=== PATIENT | female | born 2000 | race Caucasian/White ===

== ENCOUNTER 2023-08-19 07:34 | Outpatient (CLI) | payer OTHER, SELFPAY | END 2023-08-19 07:35 | disposition home or self-care (01) | PROVIDERS: Visit Provider Family Medicine | DX: S19.9XXA Unspecified injury of neck, initial encounter (principal); V49.40XA Driver injured in collision with unspecified motor vehicles in traffic accident, initial encounter; Y92.413 State road as the place of occurrence of the external cause | CPT/HCPCS: A0425; A0427 ==

== ENCOUNTER 2023-08-19 08:08 | Emergency (ER) | payer OTHER, SELFPAY ==
--- NOTE | 2023-08-19 | CT_ITS ---
Patient: FAITH GALAVIZ Facility:?[facility] Patient ID:?[id number] Site Patient ID:?[id number]. Site :?2002 Study:?CT-Head code trauma - w/o-08/19/2023 8:29:32 AM Ordering Physician:?Manuel Baum Final Report: INDICATION: Injury COMPARISON: None TECHNIQUE: CT examination of the head was performed as axial sections without intravenous contrast. Images were obtained from the vertex of the skull through the skull base. Please note that all CT scans at this facility use dose modulation, iterative reconstruction, and/or weight-based dosing when appropriate to reduce radiation dose to as low as reasonably achievable. FINDINGS: The brain shows no sign of mass lesion, mass effect, hemorrhage, or edema. The ventricles and sulci are normal in appearance for the patient`s age. The visualized portions of the orbits are normal in appearance. The osseous structures are normal in their appearance with no sign of abnormality in the skull base or calvarium. IMPRESSION: No acute intracranial posttraumatic findings. Please note that all CT scans at this facility use dose modulation, iterative reconstruction, and/or weight-based dosing when appropriate to reduce radiation dose to as low as reasonably achievable. Dictated by Robbie Walker MD @ 08/19/2023 8:40:43 AM Signed by:?Robbie Walker MD @08/19/2023 8:40:43 AM (Electronic Signature)
--- NOTE | 2023-08-19 | CT_ITS ---
Patient: FAITH GALAVIZ Facility:?[facility] Patient ID:?[id number] Site Patient ID:?[id number]. Site :?2002 Study:?CT-Spine Cervical code trauma - w/o-08/19/2023 8:29:40 AM Ordering Physician:?Manuel Baum Final Report: INDICATION: Injury COMPARISON: None TECHNIQUE: CT examination of the cervical spine is performed without contrast using spiral technique. Thin axial, sagittal and coronal reconstructions were made. Please note that all CT scans at this facility use dose modulation, iterative reconstruction, and/or weight-based dosing when appropriate to reduce radiation dose to as low as reasonably achievable. FINDINGS: : There is straightening which is usually due to muscle spasm, positioning or an immobilization device. There is no acute fracture, dislocation or destructive process. No significant arthritic changes. IMPRESSION: Straightening. No acute fracture, dislocation or destructive process. Please note that all CT scans at this facility use dose modulation, iterative reconstruction, and/or weight-based dosing when appropriate to reduce radiation dose to as low as reasonably achievable. Dictated by Robbie Walker MD @ 08/19/2023 8:42:18 AM Signed by:?Robbei Walker MD @08/19/2023 8:42:18 AM (Electronic Signature
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
[2023-08-19 08:22] VITALS: BP 139/92; PULSE 112; RESP 16; TEMP 36.9; O2SAT 99
[2023-08-19] MEDS: IBUPROFEN 400 MG TABLET 800 MG PO (08:49)
[2023-08-19] MEDS: ACETAMINOPHEN 500 MG TABLET 1000 MG PO (08:50)
[2023-08-19 09:05] VITALS: BP 139/92; PULSE 102; RESP 16; TEMP 36.9
== END 2023-08-19 09:00 | disposition home or self-care (01) ==
PROVIDERS: Emergency Provider Family Medicine
DX: S00.12XA Contusion of left eyelid and periocular area, initial encounter (principal); S16.1XXA Strain of muscle, fascia and tendon at neck level, initial encounter; V43.52XA Car driver injured in collision with other type car in traffic accident, initial encounter
CPT/HCPCS: 70450; 72125; 99284; 99291; A9270; G0390

== ENCOUNTER 2023-09-30 15:45 | Outpatient (RCR) | payer OTHER, SELFPAY | END 2023-12-02 08:16 | disposition home or self-care (01) | PROVIDERS: Visit Provider Pediatrics | DX: S16.1XXA Strain of muscle, fascia and tendon at neck level, initial encounter (principal); V89.2XXA Person injured in unspecified motor-vehicle accident, traffic, initial encounter; Z51.89 Encounter for other specified aftercare | CPT/HCPCS: 97012; 97110; 97140; 97162 ==